=== PATIENT | female | born 1975 ===

== ENCOUNTER 2023-12-07 12:53 | Emergency (ER) | payer OTHER ==
[2023-12-07 13:03] VITALS: BP 111/78; PULSE 90; RESP 18; TEMP 97.6; BMI 31.8
== END 2023-12-07 15:00 | disposition left against medical advice (07) ==
LOC: JER 12:53
DX: Z53.21 Procedure and treatment not carried out due to patient leaving prior to being seen by health care provider (principal)
CPT/HCPCS: 99281-25